=== PATIENT | male | born 1990 | race Caucasian/White ===

== ENCOUNTER 2017-09-13 19:04 | Emergency (ER) | payer OTHER ==
[2017-09-13 19:16] VITALS: BP 155/73
--- NOTE | 2017-09-13 20:09 | XRAY Preliminary Report ---
Exam: XR KNEE 4 VIEW LT IMPRESSION: No fracture or visualize joint effusion. [facility] SITE ID: [id number]
--- NOTE | 2017-09-13 20:11 | XRAY Report ---
EXAM: LEFT KNEE RADIOGRAPHY EXAM DATE: 09/13/2017 08:01 PM. CLINICAL HISTORY: Injury playing football, heard pop. COMPARISON: None. TECHNIQUE: 4 views. FINDINGS: Bones: No fracture or bony destruction. Joints: Joint space and alignment appear satisfactory. Soft Tissues: No abnormal soft tissue calcifications. IMPRESSION: No fracture or visualize joint effusion. [facility] Referring Provider Line: [phone] SITE ID: [id number]
--- NOTE | 2017-09-13 21:34 | ED Physician Documentation ---
PD HPI LOWER EXT INJURY - Stated complaint Stated Complaint: KNEE INJURY - Chief complaint Chief Complaint: Ext Problem - History obtained from History obtained from: Patient - History of Present Illness PD HPI LOW EXT INJURY LOCATION: Left, Knee Type of injury: Twist Timing - onset: Enter time (5:45 PM today), Today Timing - details: Abrupt onset Pain level now: 3 Improved by: Rest Worsened by: Moving Associated symptoms: Other (triage note indicates c/o weakness and numbness; he denies numbness on my HPI, and when he elaborates on weakness, he is describing pain with movement and not weakness per se). No: Weakness, Numbness Similar symptoms before: Has not had sx before Recently seen: Not recently seen - Additional information Additional information: while playing flag football this afternoon, he was running and suddenly turned on planted foot, experienced sudden onset left knee pain. Pain is worse with movement and weight-bearing, although he is able to partially weight-bear. Review of Systems Musculoskeletal: reports: Joint pain, Pain with weight bearing. denies: Joint swelling Neurologic: denies: Focal weakness, Numbness PD PAST MEDICAL HISTORY - Past Medical History Past Medical History: No - Past Surgical History Past Surgical History: No - Present Medications Home Medications: Ambulatory Orders Medication Instructions Recorded Confirmed No Known Home Medications [No 09/13/17 09/13/17 Known Home Medications] - Allergies Allergies/Adverse Reactions: Allergies Allergy/AdvReac Type Severity Reaction Status Date / Time No Known Drug Allergies Allergy Verified 09/13/17 21:20 - Social History Does the pt smoke?: No Smoking Status: Never smoker Does the pt drink ETOH?: No Does the pt have substance abuse?: No - Immunizations Immunizations are current?: Yes - POLST Patient has POLST: No PD ED PE NORMAL - Vitals Vital signs reviewed: Yes - General General: Alert and oriented X 3, No acute distress, Well developed/nourished - Derm Derm: Normal color - Extremities Extremities: No deformity, No tenderness to palpate, Normal ROM s pain, No edema , No calf tenderness / cord - Neuro Neuro: No motor deficit, No sensory deficit, Other (FROM left knee with 5/5 strength. LTS intact distal to left knee and 2+ DP pulse) Results - Vitals Vitals: Vital Signs - 24 hr 09/13/17 19:14 Temperature 36.8 C Heart Rate 102 H Respiratory 18 Rate Blood Pressure 155/73 H O2 Saturation 96 Oxygen O2 Source Room air - Rads (name of study) left knee xrays Radiology: Prelim report reviewed, See rad report PD MEDICAL DECISION MAKING - ED course Complexity details: reviewed results, re-evaluated patient, considered differential, d/w patient Departure - Departure Disposition: 01 Home, Self Care Clinical Impression: Left knee sprain Qualifiers: Encounter type: initial encounter Involved ligament of knee: unspecified ligament Qualified Code(s): S83.92XA - Sprain of unspecified site of left knee, initial encounter Condition: Good Instructions: ED Bandage Elastic Wrap, ED Crutch Walking, ED Sprain Knee Follow-Up: Cheryl Tolliver MD [Primary Care Provider] - (3-5 days ) Discharge Date/Time: 09/13/17 21:56
== END 2017-09-13 21:56 | disposition home or self-care (01) ==
LOC: ED 19:04
DX: S83.92XA Sprain of unspecified site of left knee, initial encounter (principal); X50.1XXA Overexertion from prolonged static or awkward postures, initial encounter; Y93.62 Activity, american flag or touch football
CPT/HCPCS: 99283